=== PATIENT | male | born 1990 | race Caucasian/White ===

== ENCOUNTER 2025-05-03 22:47 | Inpatient (IN) | payer OTHER ==
[~2025-05-03] VITALS: Ht 167.6 cm; Wt 106.6 kg
[2025-05-03] MEDS ORDERED: hydrALAZINE HCL IV 20 MG VIAL ONE ×2 (23:36→23:59)
[2025-05-03] MEDS ORDERED: LORAZEPAM INJ 2 MG/ML VIAL IM STA (23:58)
[2025-05-04] MEDS ORDERED: CLONIDINE HCL 0.1 MG TABLET PO ONE
[2025-05-04] MEDS ORDERED: diphenhydrAMINE HCL 50 MG/ML VIAL IM ONE
[2025-05-04] MEDS: hydrALAZINE HCL IV 20 MG VIAL IV ONE ×2 (00:13→02:17)
[2025-05-04] MEDS ORDERED: diphenhydrAMINE HCL 50 MG/ML VIAL ONE (00:20)
[2025-05-04] MEDS ORDERED: LORAZEPAM INJ 2 MG/ML VIAL ONE (00:21)
[2025-05-04] MEDS: LORAZEPAM INJ 2 MG/ML VIAL IV ONE (00:28)
[2025-05-04 00:29] LABS: BASOPHILS # (AUTO) 0.1 K/uL (0.0-0.2); BASOPHILS % (AUTO) 0.7 % (0.0-2.0); EOSINOPHILS # (AUTO) 0.7 K/uL (0.0-0.7); EOSINOPHILS % (AUTO) 6.1 % (0.0-6.0); HEMATOCRIT 44 % (39-51); LYMPHOCYTES # (AUTO) 2.7 K/uL (0.8-4.8); LYMPHOCYTES % (AUTO) 25.2 % (20.0-44.0); MEAN CORPUSCULAR HEMOGLOBIN 30 PG (26.0-33.0); MEAN CORPUSCULAR HGB CONC 34 g/dl (31.0-36.0); MEAN CORPUSCULAR VOLUME 87 fL (80-96); MONOCYTES # (AUTO) 1.1 K/uL (0.1-1.30); MONOCYTES % (AUTO) 10.2 % (2.0-12.0); NEUTROPHILS # (AUTO) 6.2 K/uL (1.8-8.9); NEUTROPHILS % (AUTO) 57.8 % (43.0-81.0); PLATELET COUNT (AUTO) 238 K/uL (150-450); RED BLOOD CELL COUNT(AUTO) 5.07 MIL/uL (4.5-6.0); RED CELL DISTRIBUTION WIDTH 14.9 % (11.5-15.0); WHITE BLOOD COUNT (AUTO) 10.7 K/uL (4.3-11.0)
[2025-05-04] MEDS: diphenhydrAMINE HCL 50 MG/ML VIAL IV ONE (00:29)
[2025-05-04 00:44] LABS: CALCIUM, SERUM 9.2 mg/dL (8.5-10.1); CARBON DIOXIDE 32 mmol/L (21-32); CHLORIDE 103 mmol/L (98-107); CREATININE 1.7 mg/dL (0.6-1.3); GLUCOSE 92 mg/dL (74-106); POTASSIUM 3.3 mmol/L (3.5-5.1); SODIUM SERUM 142 mmol/L (136-145); UREA NITROGEN, BLOOD 19 mg/dL (7-18)
[2025-05-04 00:54] LABS: ALANINE AMINOTRANSFERASE 31 U/L (12-78); ALBUMIN 3.9 g/dL (3.4-5.0); ALKALINE PHOSPHATASE 89 U/L (46-116); ASPARTATE AMINOTRANSFERASE 27 U/L (15-37); BILIRUBIN,TOTAL 0.7 mg/dL (0.2-1.0); NT-PRO BNP 261 pg/mL (0-125); TOTAL PROTEIN, SERUM 7.7 g/dL (6.4-8.2)
[2025-05-04 01:07] LABS: ALCOHOL, BLOOD < 3 mg/dL (0-10)
[2025-05-04] MEDS ORDERED: hydrALAZINE HCL IV 20 MG VIAL ONE (02:12)
[2025-05-04] MEDS ORDERED: CLONIDINE HCL 0.1 MG TABLET ONE (02:35)
[2025-05-04] MEDS: CLONIDINE HCL 0.1 MG TABLET PO ONE (02:37)
[2025-05-04] MEDS ORDERED: hydrALAZINE HCL IV 20 MG VIAL IV PRN (03:00)
[2025-05-04] MEDS ORDERED: ONDANSETRON HCL/PF 4 MG/2 ML VIAL IVP PRN (03:00)
[2025-05-04] MEDS ORDERED: MAG HYDROX/AL HYDROX/SIMETH 30 ML UDC PO PRN (03:00)
[2025-05-04] MEDS ORDERED: ACETAMINOPHEN 325 MG TABLET PO PRN (03:00)
[2025-05-04] MEDS ORDERED: MAGNESIUM HYDROXIDE 30 ML UDC PO PRN (03:00)
[2025-05-04] MEDS ORDERED: ENOXAPARIN SODIUM 40 MG/0.4 ML DISP.SYRIN SQ ONE (04:25)
[2025-05-04] MEDS: ENOXAPARIN SODIUM 40 MG/0.4 ML DISP.SYRIN SQ SCH (04:26)
[2025-05-04 05:51] LABS: BASOPHILS # (AUTO) 0.1 K/uL (0.0-0.2); BASOPHILS % (AUTO) 0.6 % (0.0-2.0); EOSINOPHILS # (AUTO) 0.6 K/uL (0.0-0.7); EOSINOPHILS % (AUTO) 5.9 % (0.0-6.0); HEMATOCRIT 44 % (39-51); HEMOGLOBIN 14.4 g/dL (13.5-17.5); LYMPHOCYTES # (AUTO) 2.6 K/uL (0.8-4.8); LYMPHOCYTES % (AUTO) 24.2 % (20.0-44.0); MEAN CORPUSCULAR HEMOGLOBIN 29 PG (26.0-33.0); MEAN CORPUSCULAR HGB CONC 33 g/dl (31.0-36.0); MEAN CORPUSCULAR VOLUME 88 fL (80-96); MONOCYTES # (AUTO) 0.8 K/uL (0.1-1.30); MONOCYTES % (AUTO) 7.9 % (2.0-12.0); NEUTROPHILS # (AUTO) 6.6 K/uL (1.8-8.9); NEUTROPHILS % (AUTO) 61.4 % (43.0-81.0); PLATELET COUNT (AUTO) 228 K/uL (150-450); RED BLOOD CELL COUNT(AUTO) 5.06 MIL/uL (4.5-6.0); RED CELL DISTRIBUTION WIDTH 14.4 % (11.5-15.0); WHITE BLOOD COUNT (AUTO) 10.8 K/uL (4.3-11.0)
[2025-05-04 06:02] LABS: CALCIUM, SERUM 9.1 mg/dL (8.5-10.1); CARBON DIOXIDE 33 mmol/L (21-32); CHLORIDE 105 mmol/L (98-107); CREATININE 1.6 mg/dL (0.6-1.3); GLUCOSE 91 mg/dL (74-106); MAGNESIUM 2.1 mg/dL (1.8-2.4); PHOSPHORUS 3.5 mg/dL (2.5-4.9); POTASSIUM 3.7 mmol/L (3.5-5.1); SODIUM SERUM 142 mmol/L (136-145); UREA NITROGEN, BLOOD 17 mg/dL (7-18)
[2025-05-04 06:39] VITALS: TEMP 98.9
[2025-05-04 08:35] VITALS: BP 146/106; O2SAT 97
[2025-05-04] MEDS: AMLODIPINE BESYLATE 5 MG TABLET PO ONE (09:00)
[2025-05-04] MEDS: PANTOPRAZOLE 40 MG VIAL IV SCH (09:00)
[2025-05-04] MEDS: AMLODIPINE BESYLATE 10 MG TABLET PO SCH (10:00)
[2025-05-04] MEDS: hydrALAZINE HCL 25 MG TABLET PO SCH (10:00)
[2025-05-04] MEDS ORDERED: AMLO-213 PO (10:03)
[2025-05-04] MEDS ORDERED: HYDR-4076 PO (10:03)
== END 2025-05-04 12:10 | disposition home or self-care (01) | DRG 305 ==
LOC: ER 05-04 01:55 → TELE 05-04 09:40
PROVIDERS: ADMIT Internal Medicine; ATTEND Internal Medicine
DX: I16.0 Hypertensive urgency (principal); N18.2 Chronic kidney disease, stage 2 (mild); I12.9 Hypertensive chronic kidney disease with stage 1 through stage 4 chronic kidney disease, or unspecified chronic kidney disease; F15.10 Other stimulant abuse, uncomplicated; E87.6 Hypokalemia; Z91.199 Patient's noncompliance with other medical treatment and regimen due to unspecified reason
CPT/HCPCS: 36415; 71045-TC; 80048-TC; 80053-TC; 83735-TC; 83880; 84100-TC; 84443-TC; 84484-TC; 85025-TC; G0378; G0480; J0360; J1200; J1650; J2060